=== PATIENT | female | born 1980 | race Caucasian/White ===

== ENCOUNTER 2024-01-30 09:35 | Outpatient (CLI) | payer OTHER ==
[2024-01-30] MEDS ORDERED: Magnevist 469MG/ML 20 ML VIAL ONE (13:21)
== END 2024-01-30 09:36 | disposition home or self-care (01) ==
LOC: BICMRI 09:35
PROVIDERS: ATTEND Psychiatry & Neurology Neurology
DX: R51.9 Headache, unspecified (principal)
CPT/HCPCS: 70553; A9579

== ENCOUNTER 2025-05-17 13:44 | Outpatient (CLI) | payer OTHER | END 2025-05-17 13:45 | disposition home or self-care (01) | LOC: BICMAMMO 13:44 | PROVIDERS: ATTEND Obstetrics & Gynecology | DX: Z12.31 Encounter for screening mammogram for malignant neoplasm of breast (principal) | CPT/HCPCS: 77067 ==